=== PATIENT | female | born 1990 | race Caucasian/White ===

== ENCOUNTER 2018-04-05 15:48 | Emergency (ER) | payer OTHER ==
[~2018-04-05] VITALS: Ht 170.2 cm; Wt 76.2 kg
[~2018-04-05 15:48] MED LIST: BCP; MULTIVITAMIN1 EAC1 PO; NORTRIPTYLINE H10 MG PO; ORTHO TRI-CYCL1 EACH PO; PROTONIX40 MG PO
[2018-04-05] MEDS ORDERED: MOTRIN600 MG PO (16:14)
[2018-04-05] MEDS ORDERED: FLEXERIL10 MG PO (16:14)
[2018-04-05 16:54] VITALS: BP 149/85
== END 2018-04-05 16:58 | disposition home or self-care (01) ==
LOC: EME 15:48
DX: S16.1XXA Strain of muscle, fascia and tendon at neck level, initial encounter (principal); S39.012A Strain of muscle, fascia and tendon of lower back, initial encounter; V43.52XA Car driver injured in collision with other type car in traffic accident, initial encounter; Z79.3 Long term (current) use of hormonal contraceptives
CPT/HCPCS: 99281; 99282